=== PATIENT | female | born 1985 | race Asian ===

== ENCOUNTER 2018-06-30 07:09 | Inpatient (IN) | payer BC ==
[2018-06-30 07:52] VITALS: BMI 30.2
[2018-06-30] MEDS ORDERED: Carboprost 250 MCG/ML AMP IM PRN (08:06)
[2018-06-30] MEDS ORDERED: HYDROcodone/Acetaminophen 5/325 mg Tablet PO PRN ×4 (08:06→11:56)
[2018-06-30] MEDS ORDERED: Diphenoxylate HCl/Atropine Tablet PO PRN ×2 (08:06)
[2018-06-30] MEDS ORDERED: Butorphanol Tartrate 1 MG/ML VIAL SLOW IVP PRN (08:06)
[2018-06-30] MEDS ORDERED: Acetaminophen 500 MG TAB PO PRN (08:06)
[2018-06-30] MEDS ORDERED: NS / Oxytocin 40 units/1000ml 1,000 ML IV PRN (08:06)
[2018-06-30] MEDS ORDERED: Ondansetron PF 4 MG/2 ML Vial IVP PRN ×3 (08:06→11:56)
[2018-06-30] MEDS ORDERED: Calcium Gluc 4.6 MEQ/10 ML (100 MG/ML) SLOW IVP PRN (08:06)
[2018-06-30] MEDS ORDERED: Promethazine HCl 25 MG/ML VIAL IM PRN ×2 (08:06→09:26)
[2018-06-30] MEDS ORDERED: Lidocaine 1% (PF) 30 ML VIAL SC PRN (08:06)
[2018-06-30] MEDS ORDERED: Misoprostol 200 MCG TAB PR PRN (08:06)
[2018-06-30 08:09] LABS: Amnisure Test RUPTURE DETECTED (No Rupture)
[2018-06-30] MEDS ORDERED: Magnesium Sulfate 20 gm/500 ml 20 GM/500 ML BAG ONE (08:09)
[2018-06-30 08:11] LABS: Amnisure Internal Control QC ACCEPTABLE (ACCEPTABLE)
[2018-06-30] MEDS ORDERED: Penicillin G Potassium 5 MILL.UNITS VIAL ONE (08:12)
[2018-06-30] MEDS ORDERED: Sodium Chloride 0.9% 100 ML ONE (08:13)
[2018-06-30] MEDS ORDERED: Magnesium Sulfate 20 gm/500 ml 20 GM/500 ML BAG IVPB SCH ×2 (08:15→12:00)
[2018-06-30] MEDS ORDERED: Betamet Acet/Betamet Na Ph 30 MG/5 ML VIAL IM SCH (08:15)
[2018-06-30] MEDS ORDERED: Penicillin G Potassium 5 MILL.UNITS in Sodium Chloride 0.9% 100 ML IVPB SCH (08:15)
[2018-06-30] MEDS ORDERED: Lactated Ringer's 1,000 ML IV SCH (08:15)
[2018-06-30] MEDS ORDERED: Magnesium Sulfate 20 GM/WATER 500 ML BAG IVPB SCH (08:15)
[2018-06-30] MEDS ORDERED: Betamet Acet/Betamet Na Ph 30 MG/5 ML VIAL ONE (08:18)
[2018-06-30 08:37] LABS: Hemoglobin 12.6 g/dL (12.0-16.0); Mean Corpuscular HGB CONC 32.9 g/dL (32.0-36.0); Mean Corpuscular Hemoglobin 28.2 pg (27.0-31.0); Mean Corpuscular Volume 85.7 fL (78.0-98.0); Mean Platelet Volume 8.7 fL (7.4-10.4); Platelet Count 272 thou/uL (130-400); RBC Distribution Width 12.6 % (11.5-14.5); Red Blood Cell (RBC) Count 4.47 mill/uL (4.20-5.40); White Blood Cell (WBC) Count 8.5 thou/uL (4.8-10.8)
[2018-06-30] MEDS ORDERED: Fentanyl 4 mcg/Bup 0.1% Cadd 100 ML ONE (08:49)
[2018-06-30] MEDS ORDERED: Penicillin G 2.5 MILL.units 2.5 MILL.UNITS in Premix Bag 1 BAG IVPB SCH (09:00)
[2018-06-30 09:03] LABS: ALT (SGPT) 15 U/L (8-55); AST (SGOT) 18 U/L (5-34); Albumin 2.9 g/dL (3.5-5.0); Alkaline Phosphatase 282 U/L (40-150); Anion Gap 13 mmol/L (10-20); BUN (Urea Nitrogen) 11 mg/dL (7.0-18.7); Bilirubin, Total 0.3 mg/dL (0.2-1.2); Calc. Creatinine Clearance 130 mL/min (70-130); Calcium 8.6 mg/dL (7.8-10.44); Carbon Dioxide 23 mmol/L (22-29); Chloride 105 mmol/L (98-107); Estimated GFR-MDRD Greater than 90; Globulin 2.6 g/dL (2.4-3.5); Glucose 77 mg/dL (70-105); Potassium 4.2 mmol/L (3.5-5.1); Protein, Total 5.5 g/dL (6.0-8.3); Sodium 137 mmol/L (136-145)
[2018-06-30 09:12] LABS: HBSAg Index 0.18 S/CO (0-0.99); Hep B Surf Ag Non-Reactive S/CO (NonReactive)
[2018-06-30 09:21] LABS: Syphilis Antibody Nonreactive (Nonreactive); Syphilis Antibody Index 0.04 S/CO (<1.00 Non-Reactive)
[2018-06-30] MEDS ORDERED: Eucerin (Mineral Oil/Petrolatum,White) 30 gm Jar TOP PRN (09:26)
[2018-06-30] MEDS ORDERED: ePHEDrine/0.9% NaCl/PF SYRINGE 50 mg/10 ml SLOW IVP PRN (09:26)
[2018-06-30] MEDS ORDERED: Naloxone HCl 0.4 mg/ml Vial IVP PRN ×2 (09:26)
[2018-06-30] MEDS ORDERED: Lactated Ringer's 500 ML IV PRN (09:26)
[2018-06-30] MEDS ORDERED: diphenhydrAMINE 50 MG/ML VIAL IVP PRN (09:26)
[2018-06-30] MEDS ORDERED: Acetaminophen 325 MG TAB PO PRN (09:26)
[2018-06-30] MEDS ORDERED: Fentanyl 4 mcg/Bupivacaine 0.1% Cassette 100 ML EPIDURAL SCH (09:30)
[2018-06-30] MEDS ORDERED: Communication Order-Pharmacy FS SCH (09:30)
[2018-06-30] MEDS ORDERED: Lidocaine 1% (PF) 30 ML VIAL ONE (09:39)
[2018-06-30] MEDS ORDERED: NS / Oxytocin 40 units/1000ml 1,000 ML ONE (09:39)
[2018-06-30] MEDS ORDERED: NS w/ Oxytocin 10 units 500 ML ONE (10:25)
[2018-06-30 11:12] LABS: Actual Bicarbonate (HCO3a) 25.9 mEq/L (22-28); Base Excess (BEa) -4.1 mEq/L (-2.0 to +3.0)
[2018-06-30] MEDS ORDERED: Calcium Gluconate 4.6 MEQ in Sodium Chloride 0.9% 100 ML IVPB PRN (11:54)
[2018-06-30] MEDS ORDERED: Bisacodyl 10 MG SUPP PR PRN (11:56)
[2018-06-30] MEDS ORDERED: Milk Of Magnesia 30 ML UDCUP PO PRN (11:56)
[2018-06-30] MEDS ORDERED: diphenhydrAMINE 25 MG CAP PO PRN (11:56)
[2018-06-30] MEDS ORDERED: Preparation H Ointment 28 GM TUBE PR PRN (11:56)
[2018-06-30] MEDS ORDERED: Adacel (T-DAP) 0.5 ML VIAL IM ONE (11:56)
[2018-06-30] MEDS ORDERED: Lanolin Ointment 7 GM TUBE TOP PRN (11:56)
[2018-06-30] MEDS ORDERED: NS / Oxytocin 40 units/1000ml 1,000 ML IV SCH (12:00)
--- NOTE | 2018-06-30 13:42 | OP ---
DATE OF SURGERY: 06/30/2018 PREOPERATIVE DIAGNOSES: 1. A 32-year-old [place] female G1 who presented with complaint of regular painful contractions, in active labor, labor. 2. Spontaneous rupture of membranes with clear fluid at 5:30. 3. Preeclampsia with noted severe blood pressures, headache, edema, and 3+ protein. 4. GBS unknown. POSTOPERATIVE DIAGNOSES: 1. A 32-year-old [place] female G1 who presented with complaint of regular painful contractions, in active labor, labor. 2. Spontaneous rupture of membranes with clear fluid at 5:30. 3. Preeclampsia with noted severe blood pressures, headache, edema, and 3+ protein. 4. GBS unknown. 5. delivery. 6. Vacuum-assisted vaginal delivery. PROCEDURE: Vacuum-assisted vaginal delivery for non-reassuring heart tracing. SURGEON: Anabela Chun M.D. OPTOMETRIC TECHNOLOGIST: None. ANESTHESIA: Epidural. ESTIMATED BLOOD LOSS: 150 mL. Quantitative blood loss was 133 mL. SPECIAL MEDICATIONS: 1. Magnesium bolus of 4 g with a 2 g infusion rate. 2. Betamethasone x1 for lung maturity. 3. Penicillin prophylaxis x1 dose. CLINICAL HISTORY: This patient is a 32-year-old [place] female G1 who presented at 35 and 5 days with a complaint of regular painful contractions. The patient was seen 24 hours ago in the office fo r her routine exam as well as a repeat ultrasound for concern for small for gestational age, the ultr asound showed a stable weight and size of the baby and was expected to be a constitutional small size given the patient 's body habitus. The patient was noted at that time to have a blood pressu re of 140/90s and significant edema that had been developing over the last 4-5 weeks. 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 She was sent for blood work for workup of preeclampsia; however, lab res ults were not obtained prior to her presentation this morning. The patient noted that she woke up wi th regular contraction pain and a headache. She came to the hospital and was evaluated. She also th ought that her water had broken. An AmniSure was performed and was positive. She was also found to have high blood pressure within the 190s over 115. The patient at that time was admitted. Laborator y studies were sent for evaluation which returned normal. She was started on magnesium bolus of 4 g and then a 2 g infusion rate. She requested an epidural for maternal analgesia. before the ep idural was 3 cm, 70% effaced and -2 station. Thereafter, she was noted to be just an anterior lip an d +1 station, completely effaced. The patient continued to labor and after rechecking 30 minutes lat er, she was complete and +1. She began to push and with good maternal effort was able to bring the f etal vertex to +2 station; however, the rapid descent and a pressure of coming into the pelvis cause the patient to have a non-reassuring heart tracing with repetitive late decelerations. The dec ision was made for vacuum-assisted vaginal delivery. Neonatology was called for the delivery. The v acuum was applied and in the green zone, descent was achieved with 2 successive pushes. The first pu ll did have a pop off due to hair. The delivery then was completed with the second pull. Deli very of the head was in IRVING position, the anterior shoulder followed by the posterior shoulder follow ed by the remainder of the infant's body was delivered. The cord was doubly clamped and cut and the was passed off to the neonatology team in attendance to the delivery for continued evaluation and stimulation. The placenta was then delivered spontaneously intact with a 3-vessel cord. Cord bl ood and cord gas were obtained. The cord gas was 7.19 . The bicarbonate was 25.9 and the base excess was -4.1. The vaginal introitus and cervix were explored and was noted only a midline second- degree laceration. This was repaired with a 3-0 Vicryl on a CT1 in the usual running locking fashion with crown stitches and then reapproximating the skin and bearing the knot behind the hymen. The zee jensen tolerated the procedure well and was able to recover on labor and delivery in satisfactory cond ition. Her infant did go to the NICU for continued monitoring. Apgars were 8 and 9 at 1 and 5 minut es but it was noted that the infant was grunting and so NICU was watching for continued respiratory s upport. All needle, sponge, lap, and instrument counts were correct x2 at the end of the procedure. There were no other issues surrounding this delivery.
[2018-06-30] MEDS ORDERED: Bupivacaine 0.25% HCL 30 ML VIAL ONE (18:00)
[2018-06-30] MEDS ORDERED: Labetalol 100 MG TAB PO SCH (18:15)
[2018-07-01] MEDS: Docusate Calcium (SURFAK) 240 MG CAP PO SCH ×3 (04:40→22:11)
[2018-07-01] MEDS: Ibuprofen 800 MG TAB PO SCH ×7 (06:56→22:11)
[2018-07-01] MEDS: Prenatal Vitamin 1 TAB PO SCH (09:57)
[2018-07-01] MEDS: Ferrous Sulfate 325 MG TAB PO SCH ×3 (09:58→16:48)
[2018-07-01] MEDS: Labetalol 100 MG TAB PO SCH ×2 (09:58→22:11)
[2018-07-02] MEDS: Ibuprofen 800 MG TAB PO SCH ×2 (05:00→13:51)
[2018-07-02] MEDS: Docusate Calcium (SURFAK) 240 MG CAP PO SCH (09:00)
[2018-07-02] MEDS: Ferrous Sulfate 325 MG TAB PO SCH ×2 (09:00→17:08)
[2018-07-02] MEDS: Labetalol 100 MG TAB PO SCH (09:00)
[2018-07-02] MEDS: Prenatal Vitamin 1 TAB PO SCH (09:01)
[2018-07-02 11:41] VITALS: BP 131/92; TEMP 97.7
== END 2018-07-02 17:45 | disposition home or self-care (01) | DRG 805 ==
LOC: L&D/OP 07:09 → L&D 08:23 → 3SE 07-01 14:59
PROVIDERS: ADMIT Obstetrics & Gynecology; ATTEND Obstetrics & Gynecology
PROC: 10D07Z6 Extraction of Products of Conception, Vacuum, Via Natural or Artificial Opening (ICD-10-PCS; principal; 2018-06-30)
PROC: 0KQM0ZZ Repair Perineum Muscle, Open Approach (ICD-10-PCS; 2018-06-30)
PROC: 4A0HXCZ Measurement of Products of Conception, Cardiac Rate, External Approach (ICD-10-PCS; 2018-06-30)
DX: O42.013 Preterm premature rupture of membranes, onset of labor within 24 hours of rupture, third trimester (principal); O60.14X0 Preterm labor third trimester with preterm delivery third trimester, not applicable or unspecified; Z37.0 Single live birth; O14.14 Severe pre-eclampsia complicating childbirth; O76 Abnormality in fetal heart rate and rhythm complicating labor and delivery; O66.5 Attempted application of vacuum extractor and forceps; Z3A.35 35 weeks gestation of pregnancy; O62.3 Precipitate labor; O70.1 Second degree perineal laceration during delivery
CPT/HCPCS: 36415; 51702; 80053; 82805; 83735; 84112; 85027; 86780; 86850; 86900; 86901; 87340; 99285; J0702; J2001; J2540; J3475; J7050; S0020